=== PATIENT | male | born 1960 | race African-American/Black ===

== ENCOUNTER 2017-07-21 21:44 | Inpatient (IN) ==
[2017-07-21 23:46] LABS: MANUAL DIFF NEEDED? NO
[2017-07-21 23:50] LABS: BASO% 0.3 % (0.0-0.8); EOS% 1.5 % (0.0-10.0); HEMATOCRIT 37.8 % (42.0-52.0); HEMOGLOBIN 13.3 g/dL (14.0-18.0); IMM GRAN# 0.01 X1000 (0.0-0.04); IMM GRAN% 0.2 % (0.0-0.5); LYMPH# 2.33 X1000 (1.2-3.4); LYMPH% 35.2 % (20.5-51.1); MCH 30.2 PG (27-31); MCHC 35.2 g/dL (33-37); MCV 85.7 FL (81-99); MONO# 0.53 X1000 (0.11-0.59); MPV 10.1 FL (7.4-10.4); NEUT% 54.8 % (42.2-75.2); PLT 127 X1000 (130-400); RBC 4.41 XMIL (4.7-6.1)
[2017-07-21] MEDS ORDERED: TORADOL IV ONE (23:51)
[2017-07-21] MEDS ORDERED: M.V.I.-12 10 ML, FOLIC ACID 1 MG, MAGNESIUM SULFATE 1 GM, THIAMINE 100 MG in NS 1,000 ML IV ONE (23:51)
[2017-07-21] MEDS ORDERED: OFIRMEV 1000 MG/ISOTONIC SOLN 1,000 MG/100 ML BOTTLE IV ONE (23:51)
[2017-07-22] MEDS ORDERED: NS 2,000 ML ONE (00:15)
[2017-07-22] MEDS ORDERED: MAGNESIUM SULFATE ONE (00:17)
[2017-07-22] MEDS ORDERED: THIAMINE ONE (00:17)
[2017-07-22] MEDS ORDERED: M.V.I.-12 ONE (00:17)
[2017-07-22 00:19] LABS: AGAP 14; ALBUMIN 4.5 g/dL (3.5-5.0); ALKALINE PHOSPHATASE 54 U/L (32-122); BUN 12 mg/dL (8-22); CALCIUM 9.5 mg/dL (8.8-10.2); CHLORIDE 95 mmol/L (98-107); COSMO 264; GOT 59 U/L (10-34); GPT 10 U/L (10-44); LIPASE 597 U/L (13-60); POTASSIUM 3.1 mmol/L (3.5-5.1); SODIUM 132 mmol/L (136-145); TCO2 23 mmol/L (25-35); TOTAL PROTEIN 8.4 g/dL (6.3-8.3)
[2017-07-22] MEDS ORDERED: NS 1,000 ML IV ONE (00:30)
[2017-07-22] MEDS ORDERED: ZOFRAN IV PRN (00:30)
[2017-07-22] MEDS ORDERED: TORADOL IV PRN (00:30)
[2017-07-22] MEDS ORDERED: MORPHINE IV PRN ×2 (00:30→14:39)
[2017-07-22] MEDS ORDERED: PROTONIX IV ONE (00:33)
[2017-07-22] MEDS ORDERED: SODIUM CHLORIDE 0.9% INJ ONE (00:33)
--- NOTE | 2017-07-22 00:35 | PROVIDER DOCUMENTATION ---
This chart was entered by Mariel Fofana Scribe, acting as scribe for Bryan Chen MD. HPI-Abdominal Pain/GI Problem - General Chief Complaint: Abdominal Pain Stated Complaint: ABD PAIN Time Seen by Provider: 07/21/17 23:28 Source: patient Allergies/Adverse Reactions: Patient Allergies Allergy/AdvReac Type Severity Reaction Status Date / Time SHAILA Inhibitors Allergy ANAPHYLAXIS Verified 07/21/17 22:11 ARB-Angiotensin Receptor Allergy ANAPHYLAXIS Verified 07/21/17 22:11 Antagonist aspirin Allergy ANAPHYLAXIS Verified 07/21/17 22:11 Home Medications: Home Medication List Medication Instructions Recorded Confirmed Last Taken Type Amlodipine Besylate [Norvasc] 10 mg PO DAILY 08/19/14 07/21/17 07/21/17 History Unk Cholesterol Med 1 tab PO QAM 05/18/16 05/18/16 05/18/16 06:00 History - History of Present Illness-ABD Nature of Presenting Problems: 57 year old M presents to the ED with a cc of ABD pain radiating into chest and back with an onset of 3 days ago. Pt states that he drank a quart of whiskey over the weekend. Pt states that he has tried TUMS and Zantac with no relief. Pt also having some constipation and has tried some Miralax. Pt states that he has had this before and it was his alcoholic pancreatitis. Abdominal Pain Onset Location: reports: epigastric Pain Radiation: reports: chest, back Quality of Pain: reports: aching, pressure, tightness Severity in ED: reports: mild Onset/Duration: reports: 3 days ago Timing: reports: still present Activities at Onset: reports: none Modifying Factors: improves with: nothing Associated Symptoms: reports: constipation Bruising or Bleeding Gums?: No Similar Symptoms Previously?: No Recently seen or treated by another doctor?: No Review of Systems - Adult - REVIEW OF SYSTEMS - ADULT Constitutional: denies: chills, fever Eyes: reports: no symptoms reported Ears, Nose, Mouth & Throat: denies: ear pain, throat pain Cardiovascular: denies: chest pain, palpitations Respiratory: denies: cough, shortness of breath Gastrointestinal: reports: abdominal pain, constipation. denies: diarrhea, nausea, vomiting Genitourinary: denies: dysuria, hematuria Musculoskeletal: denies: back pain, muscle weakness Integumentary: denies: skin sores/ulcer, skin thickening Neurological: denies: dizziness/vertigo, headache/migraines Psychiatric: reports: no symptoms reported Endocrine: reports: no symptoms reported Hematologic/Lymphatic: reports: no symptoms reported Allergic/Immunologic: reports: no symptoms reported All Other Systems: Reviewed and Negative Past History - Adult - PAST MEDICAL HISTORY-ADULT Review of Records: reports: Nursing Assessment Review, Medications Reviewed Major Childhood Illnesses: reports: denies history Cardiovascular: reports: HTN, hyperlipidemia Respiratory: reports: denies history Gastrointestinal: reports: pancreatitis Obstetrical/Gynecological: reports: denies history Genitourinary: reports: denies history Musculoskeletal: reports: denies history Neurological: reports: denies history Endocrine/Immune: reports: denies history Other Conditions: reports: denies history - IMMUNIZATION STATUS Childhood Immunizations: See Nurse Assessment Flu Vaccine: See Nurse Assessment - FAMILY HISTORY Family History: reviewed, not pertinent - SOCIAL HISTORY Smoking: cigarettes Provider spent 3-5 mins advising pt. on dangers of tobacco.: Discussed manners to quit use, and f/u contacts for add'l counseling. Substance Use: none/never Alcohol Use Frequency: occasionally Living Situation: family Physical Exam-General - PHYSICAL EXAM-ADULT Initial Vital Signs Reviewed: Yes - CONSTITUTIONAL General Appearance: appears well, alert, no apparent distress - RESPIRATORY Respiratory: chest non-tender, lungs clear, normal breath sounds - CARDIOVASCULAR Cardiovascular: normal peripheral pulses, regular rate, rhythm, no edema - GASTROINTESTINAL (ABDOMEN) Abdominal Exam: normal bowel sounds, soft, tenderness (RUQ, epigastric) - MUSCULOSKELETAL Back Exam: normal inspection Extremity: normal inspection - SKIN Integumentary: normal color, normal turgor, warm/dry - PSYCHIATRIC Psych/Mental Status: normal mood/affect, normal thought content, normal thought process, oriented x 3 Progress - PLAN OF CARE/RESULTS Progress/Plan/Lab Results: Vital Signs - 8 hr 07/21/17 22:07 Temperature 98.6 F Pulse Rate 65 Blood Pressure 135/83 O2 Sat by Pulse Oximetry 95 Laboratory Results - last 24 hr 07/21/17 23:40 WBC 6.61 RBC 4.41 L Hgb 13.3 L Hct 37.8 L MCV 85.7 MCH 30.2 MCHC 35.2 RDW Std Deviation 15.4 H Plt Count 127 L MPV 10.1 Immature Gran % (Auto) 0.2 Neut % (Auto) 54.8 Lymph % (Auto) 35.2 [place] % (Auto) 8.0 Eos % (Auto) 1.5 Baso % (Auto) 0.3 Immature Gran # (Auto) 0.01 Neut # (Auto) 3.62 Lymph # (Auto) 2.33 [place] # (Auto) 0.53 Eos # (Auto) 0.10 Baso # (Auto) 0.02 Orders Category Date Time Status Saline Loc DIRECTED Care 07/21/17 23:29 Active NPO Diet 07/21/17 23:29 Active CBC WITH ELECTRONIC DIFF [HEME] Stat Lab 07/21/17 23:40 Completed COMPREHENSIVE METABOLIC PANEL [CHEM] Stat Lab 07/21/17 23:40 Received LIPASE [CHEM] Stat Lab 07/21/17 23:40 Received TROPONIN T Stat Lab 07/21/17 23:[address] W/POSS RFLX CULT [URINALYSIS] Stat Lab 07/21/17 23:29 Uncollected Acetaminophen [Ofirmev 1000 mg/Isotonic Soln] Med 07/21/17 23:51 Ordered 1,000 mg in 100 ml IV NOW Banana Bag X1 Bag Over 1 Hour Med 07/21/17 23:51 Ordered Mvi [M.v.i.-12] 10 ml Folic Acid 1 mg Magnesium Sulfate 1 gm Thiamine 100 mg 0.9% Sodium Chloride Inj [Ns] 1,000 ml IV NOW Ketorolac [Toradol] Med 07/21/17 23:51 Once 30 mg IV NOW ONE EKG [EKG] Stat Ther 07/21/17 23:30 Ordered Result Diagrams: 07/21/17 23:40 07/21/17 23:40 - EKG 1 Time of EKG reading by physician:: 00:22 EKG Read and Signed by:: Bryan Chen EKG Interpretation (*Must complete 3 of following elements*): Abnormal Rate: 62 Rhythm: NSR QRS: poor R wave progression - CONSULTS/PCP/HOSPITALIST Notification #1 *Consult/PCP/Hospitalist*: Dr. Obrien(hospitalist) Time Discussed: 00:29 Reason/Comments: consult for admission Consult Disposition: Admit Departure - Departure Date of Disposition Decision: 07/22/17 Time of Disposition Decision: 00:34 DIAGNOSIS: Pancreatitis, alcoholic, acute Qualifiers: Acute pancreatitis complication: no infection or necrosis Qualified Code(s): K85.20 - Alcohol induced acute pancreatitis without necrosis or infection Disposition: ADMITTED INPATIENT 09 Certified Medical Emergency: Emergent Condition: Good Referrals and Follow-Ups: None,PCP [Primary Care Provider] - - Critical Care Note This patient required my direct & personal management of CC.: No Attestation - Physician/ DILIP Attestation Patient care was provided by Advanced Practice Provider:: No The physician spent face to face time with patient:: Yes Advanced Practice Provider documentation review:: Supervising physician onsite and consulted in the evaluation and care of this patient. The physician did have a face to face encounter with the patient. This chart was documented by the indicated scribe, (Mariel Fofana Scribe) and accurately reflects the services I performed and decisions made by me, Bryan Chen MD, as attested by the provider's signature.
[2017-07-22 01:22] LABS: BILIRUBIN URINE 1+ (NEGATIVE); BLOOD URINE NEGATIVE (NEGATIVE); CLARITY CLEAR (CLEAR); COLOR ORANGE; GLUCOSE URINE NEGATIVE (NEGATIVE); LEUKOCYTES URINE TRACE (NEGATIVE); NITRITE URINE NEGATIVE (NEGATIVE); PROTEIN URINE 1+(30 mg/dL) mg/dL (NEGATIVE); SP GRAVITY URINE 1.025; UROBILINOGEN URINE 1+(1 mg/dL)
[2017-07-22 01:34] LABS: URINE CULTURE PL NEEDED? YES; URINE EPITHELIAL CELLS <10 /HPF (<10); URINE RBC <10 /HPF (<10); URINE SOURCE CLEAN CATCH; URINE WBC <10 /HPF (<10)
--- NOTE | 2017-07-22 04:39 | EKG Report ---
Test Performed on : 07/22/2017 00:22:54 AM Test Reason : abd/chest pain Blood Pressure : / mmHG Vent. Rate : 062 BPM Atrial Rate : 062 BPM P-R Int : 160 ms QRS Dur : 076 ms QT Int : 422 ms P-R-T Axes : 018 047 045 degrees QTc Int : 428 ms Normal sinus rhythm. Septal infarct , age undetermined Abnormal ECG When compared with ECG of 13-JAN-2015 21:14, aberrant conduction. is no longer present Vent. rate has decreased BY 39 BPM Unconfirmed Result
[2017-07-22] MEDS ORDERED: TYLENOL PO PRN (14:37)
[2017-07-22] MEDS: LR 1,000 ML IV SCH ×2 (14:57→22:54)
--- NOTE | 2017-07-22 15:34 | HISTORY AND PHYSICAL ---
CHIEF COMPLAINT: Abdominal pain. HISTORY OF PRESENT ILLNESS: This is a 57-year-old, male, history of hypertension, who presents with abdominal pain focused in his epigastrium onset about 3 days ago. He did have a" frias" over the weekend. He reports drinking a quart of whiskey. It is kind of unclear if he does do daily drinking. When I interviewed him today, he states he only drank on the weekends, he did not drink every day, he did not go through withdrawal symptoms, but he did say this weekend at least Thursday he drank a quart of whiskey plus or minus additional beers as well. He has had an episode of pancreatitis in the past. Last admission was in 2014, admission before that 2013 where apparently I took care of him. In any case, patient was admitted for acute pancreatitis. Lipase was elevated. He had not undergone any imaging that I could tell and has already clinically improved. PAST MEDICAL HISTORY: Hypertension alone, and then he has had at least 2 episodes of pancreatitis. PAST SURGICAL HISTORY: Denies. FAMILY HISTORY: Reviewed and noncontributory. Father had lung cancer. Mother had a AAA. SOCIAL HISTORY: As described about the drinking. Previously though, he states he drinks most days, but he states he has only been drinking on the weekends. Smokes about half a pack a day for 40 years. ALLERGIES: SHAILA inhibitors apparently has caused significant swelling and angioedema. Apparently we diagnosed that here. MEDICATIONS: He just takes Norvasc and he takes a cholesterol medication of unknown type. He says 40 mg which could be several statin therapies. REVIEW OF SYSTEMS: Reviewed 10 systems, otherwise negative. PHYSICAL EXAMINATION: VITAL SIGNS: Blood pressure 150/77, heart rate 58, respiratory rate 18, temperature 97.4 degrees, satting 97% on room air. GENERAL: A well-developed male in no acute distress. HEAD: Exam was normocephalic, atraumatic. EYE EXAM: Pupils equal, round, reactive to light. Extraocular movements were intact. EAR/NOSE/THROAT EXAM: Had moist mucous membranes. NECK EXAM: Supple. CARDIOVASCULAR EXAM: Regular rate and rhythm. No murmurs, gallops, or rubs. PULMONARY EXAM: Bilateral breath sounds. Clear to auscultation. GI: Soft, mild tenderness in the epigastrium, but nothing major. Bowel sounds diminished, but present. EXTREMITY EXAM: No clubbing or cyanosis. LYMPHATIC EXAM: No peripheral edema. NEUROLOGICAL EXAM: Nonfocal. MUSCULOSKELETAL: Exam was 5/5 in all 4 extremities. LABORATORY DATA: Sodium 132, potassium 3.1, AST of 59, lipase of 597. Amylase was not checked. No white count. Urine was really unremarkable. IMAGING STUDIES: No imaging I think had been completed. ASSESSMENT: This is a 57-year-old male with history of chronic alcohol use and hypertension presenting with acute pancreatitis, recurrent. 1. Acute pancreatitis. Clinically he has improved. He has had several episodes of pancreatitis; this will be his third admission granted in 3 years. We will pursue imaging at least initially with a right upper quadrant ultrasound to rule out cholelithiasis, but that has never been the case previously. It sounds like it is related to alcohol and does not really feel like he is dedicated to stopping at this point, but we will counselor at law him further. Nothing by mouth, clear liquids as tolerated. If his ultrasound is unremarkable, continue intravenous fluids, antiemetics, analgesic therapy and follow. 2. Chronic alcohol use. We will continue to monitor. Again, counseled on treatment. 3. Hypertension. Continue his Norvasc and monitor. DISPOSITION: Pending his clinical course, I anticipate he will probably be here for 24 hours. Hopefully, no more than 24 hours pending his clinical course. cc: MD Nikki Naik MD
[2017-07-22 16:12] LABS: AGAP 14; ALBUMIN 4.2 g/dL (3.5-5.0); ALKALINE PHOSPHATASE 52 U/L (32-122); BUN 11 mg/dL (8-22); CALCIUM 9.1 mg/dL (8.8-10.2); CHLORIDE 100 mmol/L (98-107); COSMO 269; GOT 57 U/L (10-34); GPT 10 U/L (10-44); LIPASE 273 U/L (13-60); SODIUM 135 mmol/L (136-145); TCO2 21 mmol/L (25-35); TOTAL PROTEIN 7.9 g/dL (6.3-8.3)
--- NOTE | 2017-07-22 16:37 | Diag Imaging Result Doc PS360 ---
US GB < RUQ (LIMITED) - 07/22/2017 INDICATION: pancreatitis TECHNIQUE: Mayen scale, color Doppler, and duplex evaluation of the abdomen was performed. COMPARISON: None FINDINGS: The liver appears hyperechoic suggesting diffuse fatty liver infiltration. No focal masses are appreciated. The IVC and aorta appear normal. The pancreas is obscured by bowel gas artifact. The gallbladder contains rounded areas of mild hyperechogenicity without posterior acoustical shadowing. This may represent tumefactive sludge, left likely poorly calcified stones or polyps. There is no gallbladder wall thickening or pericholecystic fluid. The common bile duct measures 4 mm. The portal vein is patent with hepatopetal flow. The right kidney appears normal. There is no hydronephrosis. No sonographic Estrada's sign was elicited by the technologist. IMPRESSION: Poorly defined areas of increased echogenicity within the gallbladder which may indicate tumefactive sludge, less likely poorly calcified gallstones or polyps. Probable hepatic steatosis. Electronically signed by Neva Gurrola 07/22/2017 4:35 PM
[2017-07-22] MEDS: POTASSIUM CHLORIDE 20 MEQ/SWI 20 MEQ/100 ML IVPB IV SCH ×2 (21:34→23:55)
[2017-07-23 06:20] LABS: HEMATOCRIT 37.3 % (42.0-52.0); HEMOGLOBIN 12.9 g/dL (14.0-18.0); MCH 29.5 PG (27-31); MCHC 34.6 g/dL (33-37); MCV 85.4 FL (81-99); MPV 9.9 FL (7.4-10.4); RBC 4.37 XMIL (4.7-6.1)
[2017-07-23 06:32] LABS: AGAP 11; ALKALINE PHOSPHATASE 48 U/L (32-122); BUN 8 mg/dL (8-22); CALCIUM 9.1 mg/dL (8.8-10.2); CHLORIDE 102 mmol/L (98-107); COSMO 273; GOT 53 U/L (10-34); GPT 9 U/L (10-44); POTASSIUM 3.7 mmol/L (3.5-5.1); SODIUM 138 mmol/L (136-145); TCO2 25 mmol/L (25-35); TOTAL PROTEIN 7.5 g/dL (6.3-8.3); TRIGLYCERIDES 148 mg/dL (39-160)
[2017-07-23] MEDS: LR 1,000 ML IV SCH ×3 (08:44→22:48)
[2017-07-23] MEDS: NORVASC PO SCH (10:51)
--- NOTE | 2017-07-23 15:22 | Diag Imaging Result Doc PS360 ---
HIDA SCAN W/ EJECTION FRACTION - 07/23/2017 INDICATION: cholecystitis COMPARISON: None FINDINGS: 5.5 millicuries of Choletec was administered. There is normal uptake and clearance by the liver. Visualization of the gallbladder was somewhat delayed, but appeared by 75 minutes. There is normal excretion into the small bowel. A fatty meal was given. The gallbladder ejection fraction is 8%. IMPRESSION: Severely subnormal gallbladder ejection fraction compatible with chronic cholecystitis or biliary dyskinesia.. An abnormally low ejection fraction (less than 35%) can be present in patients without gallbladder dyskinesis or chronic cholelithiasis to have other medical conditions. These include but are not limited to, patients with diabetic mellitus, irritable bowel syndrome, , gastroenteritis. peptic ulcer disease, and patients receiving morphine or nifedipine. Electronically signed by Benjy Phelps 07/23/2017 3:20 PM
[2017-07-23] MEDS ORDERED: SODIUM CHLORIDE 0.9% INJ PRN (18:08)
[2017-07-23] MEDS ORDERED: PROTONIX IV SCH (18:15)
[2017-07-23] MEDS ORDERED: LOVENOX SUBQ SCH (18:15)
--- NOTE | 2017-07-24 01:06 | CONSULTATION ---
DATE OF CONSULTATION: 07/23/2017 REASON FOR CONSULTATION: Gallstone pancreatitis. HISTORY OF PRESENT ILLNESS: This is a 57-year-old male, who presented to the hospital a couple of days ago after acute onset of epigastric discomfort and gas-type pains. He also describes this as an indigestion feeling. It radiated through to his back. It began after eating some fried foods on Thursday. The pain was waxing and waning, and then over the last 2 days, it has dissipated and resolved. He denies nausea, vomiting, fever, chills, diarrhea, or constipation. He has had other similar episodes like this in the past. He is known to be a regular drinker. PAST MEDICAL HISTORY: Hypertension and alcohol abuse. PAST SURGICAL HISTORY: None. HOME MEDICATIONS: Norvasc and a statin. ALLERGIES: SHAILA inhibitors. FAMILY HISTORY: Reviewed and noncontributory. SOCIAL HISTORY: He drinks. A quart of whiskey and several beers on a regular basis. It sounds like he drinks at least on the weekends, if not most days. He smokes half a pack a day for 40 years. REVIEW OF SYSTEMS: Ten systems reviewed and negative, except as noted above. PHYSICAL EXAMINATION: Vital Signs: Temperature 98.8 degrees, pulse 71 respirations 20, blood pressure 144/74, O2 saturation 100%. General: A well-developed, well-nourished male, in no distress, who looks his stated age. HEENT: Normocephalic, atraumatic. Extraocular muscles intact. Pupils equal, round, reactive to light. Sclerae anicteric. Moist mucous membranes. Neck: Supple. No thyromegaly. Cardiovascular: Regular rate and rhythm. Respiratory: Bilateral equal breath sounds. No work of breathing. Gastrointestinal: Soft, nontender, nondistended. No organomegaly or mass. No hernias. Extremities: No clubbing, cyanosis, or edema. Skin: Warm and dry. No rash. Musculoskeletal: Moves all extremities equally and well. LABORATORY STUDIES: White cell count 4.7, hemoglobin 12.9, platelet count 135,000. Sodium 138, potassium 3.7, chloride 102, CO2 25, BUN 8, creatinine 0.9, glucose 87, AST 83, ALT 9, alkaline phosphatase 48, total bilirubin 0.7. Lipase has trended from 597 to 273 to 422. IMAGING STUDIES: A abdominal ultrasound done yesterday showed rounded hypoechogenic areas in the gallbladder, likely representing tumefactive sludge or gallstones. There is probable hepatic steatosis. The common bile duct was normal at 4 mm. A HIDA scan done today shows a gallbladder ejection fraction of 8%. ASSESSMENT AND PLAN: This is a 57-year-old male with pancreatitis, likely biliary in origin. He appears to have some sludge or gallstones, and has a biliary dyskinesia as well. I have recommended to him laparoscopic cholecystectomy with cholangiogram tomorrow. He is not interested in this at this time. He wants to go home and discuss it with his and follow up with me as an outpatient. I again strongly recommended to him getting his gallbladder out this admission, as this has been his third episode of pancreatitis, but again he is adamant he wants to wait and discuss with his , who is out of town. He does assure me that he would follow up with me in my office next week. I discussed with him the signs and symptoms of recurrent pancreatitis or cholecystitis, and encouraged him to follow up with us sooner if he had any recurrent symptoms after he is discharged. Thank you for the consultation. cc: Lawrence Bryant MD
[2017-07-24 06:30] LABS: MANUAL DIFF NEEDED? NO
[2017-07-24] MEDS: LR 1,000 ML IV SCH (06:30)
[2017-07-24 06:46] LABS: BASO% 0.2 % (0.0-0.8); EOS% 2.5 % (0.0-10.0); HEMATOCRIT 35.4 % (42.0-52.0); IMM GRAN# 0.01 X1000 (0.0-0.04); IMM GRAN% 0.2 % (0.0-0.5); LYMPH# 1.83 X1000 (1.2-3.4); LYMPH% 45.5 % (20.5-51.1); MCH 28.9 PG (27-31); MCHC 33.9 g/dL (33-37); MCV 85.3 FL (81-99); MONO# 0.59 X1000 (0.11-0.59); MONO% 14.7 % (1.7-9.3); MPV 10.3 FL (7.4-10.4); NEUT% 36.9 % (42.2-75.2); PLT 136 X1000 (130-400); RBC 4.15 XMIL (4.7-6.1)
[2017-07-24 06:55] LABS: AGAP 10; ALBUMIN 3.7 g/dL (3.5-5.0); ALKALINE PHOSPHATASE 41 U/L (32-122); BUN 10 mg/dL (8-22); CALCIUM 8.7 mg/dL (8.8-10.2); CHLORIDE 103 mmol/L (98-107); COSMO 269; GOT 43 U/L (10-34); GPT 8 U/L (10-44); LIPASE 238 U/L (13-60); POTASSIUM 3.4 mmol/L (3.5-5.1); SODIUM 135 mmol/L (136-145); TCO2 23 mmol/L (25-35); TOTAL PROTEIN 6.9 g/dL (6.3-8.3)
[2017-07-24 07:12] LABS: INR 0.95 (0.86-1.15); PROTIME 13.4 Seconds (12.1-15.5); PTT PL 39.5 Seconds (22.6-43.9)
[2017-07-24 07:47] VITALS: BP 145/80
[2017-07-24] MEDS: NORVASC PO SCH (09:07)
[2017-07-24] MEDS ORDERED: KLOR-CON PO ONE (09:57)
[2017-07-24 12:09] LABS: HEPATITIS PROFILE ACUTE SEE COMMENTS
--- NOTE | 2017-07-25 10:35 | DISCHARGE SUMMARY ---
ADMISSION DATE: 07/21/2017 DISCHARGE DATE: 07/24/2017 CONSULTATION: Dr. Lawrence Bryant with Surgery. DIAGNOSTIC PROCEDURES AND FINDINGS: Abdominal ultrasound, done on 07/22/2017, shows poorly- defined areas of increased echogenicity within the gallbladder, which may indicate tumefactive sludge. Less likely, poorly-calcified gallstones or polyps. Probable hepatic steatosis. HIDA scan, done on 07/23/2017, shows severely subnormal gallbladder ejection fraction , compatible with chronic cholecystitis or biliary dyskinesia. HOSPITAL COURSE: Mr. Sr is a 57-year-old gentleman, with a history of hypertension and previous episodes of pancreatitis, along with alcohol dependence, who reported to the ER at [facility] for abdominal pain in the epigastrium about 3 days prior to admission. He was drinking over the weekend, possibly around a quart of whiskey. He subsequently started having abdominal pain and brought himself to the ER. His lipase was elevated, and abdominal ultrasound did show some possible sludge in the gallbladder. We admitted the patient and kept him n.p.o., along with fluids, pain medication, and we obtained a HIDA scan which was severely abnormal. We consulted Dr. Bryant, with Surgery, who felt the patient was a good candidate for inpatient cholecystectomy; however, the patient said that he wanted to go home and discuss the situation with his . Dr. Bryant strongly encouraged the patient to have his gallbladder taken out while he was here; however, the patient was adamant that he go home. Dr. Bryant will see the patient next week in his office. The patient did not show any real signs of withdrawal while he was here. He did have some mildly elevated AST, and his lipase did trend down. Overall, the patient has stabilized and he is now stable to go home; however, should he have any more pain or concerns, we have instructed him to promptly come back to the ER. DISCHARGE MEDICATIONS: Norvasc 10 mg daily, Lipitor 40 mg p.o. at bedtime, Voltaren 75 mg p.o. b.i.d., fenofibrate 160 mg p.o. daily, KCl 20 mEq p.o. daily, Kenalog 0.1% topically as directed. DISCHARGE LABORATORY DATA: WBC 4.02, hemoglobin 12, hematocrit 35.4, platelet count is 136,000. INR 0.95. Sodium 135, potassium 3.4, chloride 103, CO2 23, anion gap 10, BUN 10 , creatinine 0.8, glucose is 102. T bilirubin 0.5, AST 43, ALT 8, alkaline phosphatase 41, protein 6.9, lipase 238. PHYSICAL EXAMINATION: General: This is an overweight, male, lying in hospital bed in no acute distress. Neurologic: He is awake, alert and oriented. Follows commands without focal deficits. HEENT: Head is atraumatic, normocephalic. His pupils are equal, round, reactive to light. Oral mucosa is moist. neck: Trachea is midline. Chest: Clear to auscultation bilaterally. Cardiovascular: Regular rate and rhythm. S1 and S2 are noted. No murmurs. Gastrointestinal: Soft, nondistended, nontender. Bowel sounds positive. Extremities: No edema, clubbing, or cyanosis. Pulses 1+ bilaterally. DISCHARGE DIET: Heart healthy, as tolerated. DISCHARGE ACTIVITY: Resume activity as tolerated. DISPOSITION AND DISCHARGE INSTRUCTIONS: The patient has been discharged home to self-care. He is to follow up with Dr. Bryant next week. We have instructed him not to drink alcohol at all and should he have any worsening pain or symptoms, to come to the ER immediately. The patient verbalized understanding. All discharge questions have been answered. DISCHARGE TIME: Greater than 35 minutes. Dictated by MALAIKA Keyes for Ronnie Obrien MD cc: MALAIKA Keyes MD Jason R. Seale, MD pt examined, face to face and exam today shows no pain or distension on exam, plan for lap silvano as outpt, educated on low fat diet and warning signs of cholecystitis APENOT MTDD
== END 2017-07-24 13:03 | disposition home or self-care (01) ==
LOC: P.ED 21:44 → P.MEDSURG 21:45
PROVIDERS: ATTEND Internal Medicine